=== PATIENT | male | born 1990 | race Two or more races ===

== ENCOUNTER 2024-11-19 03:25 | Emergency (ER) | payer MEDICAID, SELFPAY ==
--- NOTE | ~2024-11-19 | CT_ITS ---
CLINICAL HISTORY: right facial swelling? parotitis, soft tissue absc CT soft tissue neck with contrast Comparison: None Findings: The visualized intracranial contents are unremarkable. No prevertebral fluid. Epiglottis is within normal limits. Pharyngeal mucosal space and parapharyngeal fat are normal. There are mildly enlarged bilateral cervical chain lymph nodes likely reactive. There is a circumscribed low-attenuation structure superficial to the right parotid gland measuring 2.1 x 1.2 x 2.8 cm. The salivary glands are otherwise unremarkable. Thyroid gland is unremarkable. Visualized lung apices are clear. No acute fractures. There is chronic sinusitis. IMPRESSION: There is a circumscribed low-attenuation structure superficial to the right parotid gland measuring 2.1 x 1.2 x 2.8 cm. favor abscess or necrotic lymph node. Consider correlating with ultrasound. Mild reactive cervical chain adenopathy bilaterally. This document has been electronically signed by: Mateo Emmanuel MD on 11/19/2024 09:51:53
[2024-11-19 03:29] VITALS: BP 138/95; PULSE 100; RESP 18; TEMP 36.9; O2SAT 95; BMI 32.1
--- OUTSIDE RECORDS SUMMARY | 2024-11-19 06:36 | XMS_ITS | Clinical Summary ---
Author Organization [facility] Address [address] [place] [address] Care Team Providers Care Bouffant Curtain Machine Tender Name Role Phone Sonia Barajas PA-C Primary Care Provider [phone] Source Comments PLEASE NOTE, if this patient is a minor, it may be UNLAWFUL to discuss sensitive information that is contained in these records (such as FAMILY PLANNING, MENTAL HEALTH or SUBSTANCE ABUSE) with the minor patient's parent or other person without the patient's specific authorization.[facility] Allergies No known active allergies Medications ARIPiprazole (ABILIFY) 15 mg tablet TAKE 1 TABLET BY MOUTH EVERY DAY IN THE MORNING 2 Active zolpidem (AMBIEN) 10 mg tablet TAKE 1 TABLET BY MOUTH EVERY DAY AT BEDTIME NEEDED 2 Active famotidine (PEPCID) 20 mg tabletIndications: Dyspepsia Take 1 Tablet by mouth 2 (two) times daily as needed for heartburn 30 Tablet 3 2 Active simvastatin (ZOCOR) 10 mg tabletIndications: Hyperlipidemia, unspecified hyperlipidemia type Take 1 Tablet by mouth nightly at bedtime 90 Tablet 2 Active hydrocortisone 1 % creamIndications:R ruthie Apply topically 2 (two) times daily 30 g 1 2 Active meloxicam (MOBIC) 7.5 mg tabletIndications: Right elbow pain,Left foot pain Take 1 Tablet by mouth once daily 30 Tablet 1 3 Active cyclobenzaprine (FLEXERIL) 10 mg tabletIndications: Right elbow pain,Left foot pain Take 1 Tablet by mouth 3 (three) times daily as needed for muscle spasms 45 Tablet 3 Active Active Problems Problem Noted Date Diagnosed Date Substance abuse ([facility]) 06/04/2021 Depression 06/04/2021 Current every day smoker 06/04/2021 Family History Medical History Relation Name Comments No Known Problems Daughter DVT Father Relation Name Status Comments Daughter Alive Father Alive Mother Alive Social History Tobacco Use Types Packs/Day Years Used Date Smoking Tobacco: Some Days Cigarettes Smokeless Tobacco: Former Tobacco Cessation:Counseling Given: Yes Comments:About 10 a day - quit 1 week ago Alcohol Use Standard Drinks/Week Comments Yes 0 (1 standard drink = 0.6 oz pur e alcohol) occ Social Connections Answer Date Recorded Connectedness 0 07/20/2024 Financial Resource Strain Answer Date R ecorded Financial Resource Strain 0 2020 Stress Answer Date Recorded Stress 0 06/03/2021 Physical Activity Answer Date Recorded Physical Activity 0 06/03/2021 Food Insecurity Answer Date Recorded Food 0 07/13/2024 Transportation Needs Answer Date Record ed Transportation 0 06/03/2021 Housing Stability Answer Date Recorded Housing 0 06/03/2021 Safety and Environment Answer Date Baltazar rded Safety 0 06/03/2021 Utilities Answer Date Recorded Utilities 0 06/03/2021 Employment Answer Date Recorded Stress 0 07/20/2024 Sex and Gender Information Value Date Recorded Sex Assigned at Male 06/04/2021 10:05 AM PDT Legal Sex Male 9:46 AM PDT Gender Identity Male 06/04/2021 10:05 AM PDT Sexual Orientation Straight 06/04/2021 10 :05 AM PDT Last Filed Vital Signs Vital Sign Reading Time Taken Comments Blood Pressure 118/80 07/27/2023 10:56 AM EDT Pulse 88 07/27/2023 10:56 AM EDT Temperature 36.7 ??C (98.1 ??F) 07/27/2023 10:56 AM E DT Respiratory Rate 20 07/27/2023 10:56 AM EDT Oxygen Saturation 98% 03/31/2023 3:20 PM EDT Inhaled Oxygen Concentration - - Weight 102.5 kg (226 lb) 07/27/2023 10:56 AM EDT Height 188 cm (6' 2 ) 07/27/2023 10:56 AM EDT Body Mass Index 29.02 07/27/2023 10:56 AM EDT Plan of Treatment Health Maintenance Due Date Last Done Comments Imm-DTaP/Tdap/Td (1 - Tdap) 2008 Imm-Hepatitis B (1 of 3 - 19 + 3-dose series) 2008 Imm-Pneumococcal (1 of 2 - PCV) 2008 Annual Preventive Care Visit 08/04/2023 08/04/2022, 06/03/2021 Depression Monitoring 10/27/2023 07/27/2023 , 08/04/2022, 06/03/2021 Tobacco Cessation Counseling (#1) 07/26/2024 021 Alcohol and Drug Screen 10/18/2024 07/27/20 23, 03/31/2023, 08/04/2022, Additional history exists Diabetes Screening 11/22/2024 11/22/2023, 0 11/22/2023, 12/05/2021, Additional history exists Lipid Screening 11/22/2024 11/22/2023, 12/05/2021 Hypertension Screening (#1) 07/26/2026 HIV Screening Completed 12/05/2021 Hepatitis C Screening Completed 11/22/2023, 022 [id number] Discontinued Imm-Influenza Discontinued Procedures Procedure Name Priority Date/Time Associated Diagnosis Comments ACUTE HEPATITIS PANEL W/RFLX Routine 11/22/2023 2:32 PM EST Erectile dysfunction, unspecified erectile dysfunction type COMPREHENSIVE METABOLIC PANEL Routine 11/22/2023 2:32 PM EST Hyperlipidemia, unspecified hyperlipidemia type LIPIDS W RFLX TO DIRECT LDL Routine 11/22/2023 2:32 PM EST Erectile dysfunction, unspecified erectile dysfunction type Hyperlipidemia, unspecified hyperlipidemia type HIV 1/2 AG & AB W/RFLX (4TH GEN) Routine 12/05/2021 10:05 AM EST Encounter for general adult medical examination w/o abnormal findings from Last 3 Months or Most Recently Relevant to Health Maintenance Results * ACUTE HEPATITIS PANEL W/RFLX (11/22/2023 2:32 PM EST) HEPATITIS B SURFACE ANTIGEN NON-REACT ANTHONY NON-REACT ANTHONY [facility] [facility] COMMENT [employer] [facility] HEPATITIS B CORE IGM ANTIBODY NON-REACT ANTHONY NON-REACT ANTHONY [employer] [facility] COMMENT [employer] [facility] HEPATITIS C ANTIBODY NON-REACT ANTHONY NON-REACT ANTHONY [employer] [facility] Comment: HCV antibody was non-reactive. There is no laboratory evidence of HCV infection. In most cases, no further action is required. However, if recent HCV exposure is suspected, a test for HCV RNA (test code 56002) is suggested. For additional information please refer to http://Skipola.[employer]/faq/TPG17k7 (This link is being provided for informational/ educational purposes only.) HEPATITIS A IGM ANTIBODY NON-REACT ANTHONY NON-REACT ANTHONY [employer] [facility] COMMENT [employer] [facility] Blood Blood / Unknown 11/22/2023 2 :32 PM EST 11/22/2023 2:33 PM EST Narrative [employer] [facility] - 11/29/2023 1:18 PM EST For additional information, please refer to http://Skipola.[employer]/faq/AAJ535 (This link is being provided for informational/ educational purposes only.) For additional information, please refer to http://Skipola.[employer]/faq/BRE592 (This link is being provided for informational/ educational purposes only.) For additional information, please refer to http://[employer]/faq/IFW678 (This link is being provided for informational/ educational purposes only.) us Sonia Barajas PA-C LAB - BLOOD DRAW Final Resul t [facility] [facility] [employer] [address] [address], [employer] [address] [address] * (ABNORMAL) LIPIDS W RFLX TO DIRECT LDL (11/22/2023 2:32 PM EST) CHOLESTEROL, TOTAL 194 <200 mg/dL [facility] HDL CHOLESTEROL 56 > OR = 40 mg/dL [facility] TRIGLYCERIDES 127 <150 mg/dL [employer] [facility] LDL-CHOLESTEROL 114(H) 99 mg/dL (calc) [employer] Comment: Reference range: <100 Desirable range <100 mg/dL for primary prevention; ?? <70 mg/dL for patients with CHD or diabetic patients with > or = 2 CHD risk factors. LDL-C is now calculated using the Halley calculation, which is a validated novel method providing better accuracy than the Friedewald equation in the estimation of LDL-C. Luis Carlos NG et al. ROSA ELENA. 2013;310(19): 3965-6824 (http://education.Foodzai/faq/RUX119) CHOL/HDLC RATIO 3.5 <5.0 (calc) [employer] NON-HDL CHOLESTEROL 138(H) <130 mg/dL (calc) [employer] Comment: For patients with diabetes plus 1 major ASCVD risk factor, treating to a non-HDL-C goal of <100 mg/dL (LDL-C of <70 mg/dL) is considered a therapeutic option. Blood Blood / Unknown 11/22/2023 2 :32 PM EST 11/22/2023 2:33 PM EST us Sonia Barajas PA-C LAB - BLOOD DRAW Final Resul t [employer] [address] [place] [id number], [employer] [address] [place] [phone] * (ABNORMAL) COMPREHENSIVE METABOLIC PANEL (11/22/2023 2:32 PM EST) GLUCOSE 103(H) 65 - 99 mg/dL [employer] Comment: ?Fasting reference interval For someone without known diabetes, a glucose value between 100 and 125 mg/dL is consistent with prediabetes and should be confirmed with a follow-up test. UREA NITROGEN (BUN) 18 7 - 25 mg/dL [employer] CREATININE (blood) 0.92 0.60 - 1.26 mg/dL [employer] EGFR 112 > OR = 60 mL/min/1. 73m2 [employer] BUN/CREATININE RATIO SEE NOTE: [employer] Comment: ?? Not Reported: BUN and Creatinine are within ?? reference range. ? SODIUM 138 135 - 146 mmol/L [employer] [facility] POTASSIUM 4.8 3.5 - 5.3 mmol/L [employer] CHLORIDE 105 98 - 110 mmol/L [employer] [facility] CARBON DIOXIDE 27 20 - 32 mmol/L [employer] [facility] [facility] CALCIUM 9.2 8.6 - 10.3 mg/dL [employer] PROTEIN, TOTAL 6.6 6.1 - 8.1 g/dL [employer] [facility] ALBUMIN 4.4 3.6 - 5.1 g/dL [employer] [facility] GLOBULIN 2.2 1.9 - 3.7 g/dL (calc) [employer] [facility] [employer] ALBUMIN/GLOBULI N RATIO 2.0 1.0 - 2.5 (calc) [employer] BILIRUBIN, TOTAL 0.6 0.2 - 1.2 mg/dL [employer] [facility] ALKALINE PHOSPHATASE 98 36 - 130 U/L [employer] [facility] AST 13 10 - 40 U/L [employer] [facility] ALT 11 9 - 46 U/L [employer] [facility] Blood Blood / Unknown 11/22/2023 2 :32 PM EST 11/22/2023 2:33 PM EST us Sonia Barajas PA-C LAB - BLOOD DRAW Edited Resu lt - Final [employer] [address] [address], [employer] [address] [phone] * HIV 1/2 AG & AB W/RFLX (4TH GEN) (12/05/2021 10:05 AM EST) HIV AG/AB, 4TH GEN NON-REAC TIVE NON-REAC TIVE [employer] [facility] Comment: HIV-1 antigen and HIV-1/HIV-2 antibodies were not detected. There is no laboratory evidence of HIV infection. PLEASE NOTE: This information has been disclosed to you from records whose confidentiality may be protected by state law. ??If your state requires such protection, then the state law prohibits you from making any further disclosure of the information without the specific written consent of the person to whom it pertains, or as otherwise permitted by law. A general authorization for the release of medical or other information is NOT sufficient for this purpose. ?? For additional information please refer to http://education.GridCure.8bit/faq/QZJ363 (This link is being provided for informational/ educational purposes only.) The performance of this assay has not been clinically validated in patients less than 2 years old. Blood Blood / Unknown 12/05/2021 1 0:05 AM EST 12/05/2021 10:07 AM EST Narrative [facility] - 12/06/2021 2:15 AM EST FASTING:NO Marlon Barr PA-C LAB - BLOOD DRAW Final Result [facility] [id number] [facility] [address] [address], [employer] [facility] [address] [address] from Last 3 Months or Most Recently Relevant to Health Maintenance [place] [employer] [address] [employer] Care Teams Bouffant Curtain Machine Tender Relationship Specialty Start Date End Date Sonia Barajas PA-C [address] [place] [address] PCP - General Internal Medicine 08/02/23
--- OUTSIDE RECORDS SUMMARY | 2024-11-19 06:36 | XMS_ITS | Encounter Summary ---
Author Organization [employer] [facility] Address [address] [place] [address] Care Team Providers Care Wilton Weaver Name Role Phone Unavailable Primary Care Provider Unavailabl e Encounter Details Date Type Department Care Team (Latest Contact Info) Description 11/13/2024 Travel Social History Tobacco Use Types Packs/Day Years Used Date Smoking Tobacco: Never Assessed Sex and Gender Information Value Date Recorded Sex Assigned at Male 11/13/2024 1:35 PM EST Legal Sex Male 1:30 PM EST Gender Identity Male 11/13/2024 1:35 PM EST Sexual Orientation Straight 11/13/2024 1: 35 PM EST documented as of this encounter Plan of Treatment Not on file documented as of this encounter Visit Diagnoses Not on filedocumented in this encounter
--- OUTSIDE RECORDS SUMMARY | 2024-11-19 06:36 | XMS_ITS | Clinical Summary ---
Author Organization [employer] Address [address] [place] [address] [address] [place] [address] Care Team Providers Care Tractor Operator Laser Leveling Name Role Phone Unavailable Primary Care Provider Unavailabl e Allergies No known active allergies Medications doxycycline (Vibramycin) 100 MG capsuleIndicati ons:Facial cellulitis Take 1 capsule (100 mg) by mouth 2 times daily for 7 days. Take with at least 8 ounces (large glass) of water, do not lie down for 30 minutes after 14 capsule 11/13/2024 Active Encounters Date Type Department Care Team Description 11/13/2024 5:00 PM EST Office Visit [facility] [address] [place] [phone] Ed Colbert MD Facial cellulitis (Primary Dx) 11/13/2024 Telephone [facility] [address] [place] [phone] Ed Colbert MD 11/13/2024 Travel 11/13/2024 Telephone [facility] [address] [place] [phone] Arnulfo Segura MD insurance from Last 3 Months Social History Tobacco Use Types Packs/Day Years Used Date Smoking Tobacco: Never Assessed Sex and Gender Information Value Date Recorded Sex Assigned at Male 11/13/2024 1:35 PM EST Legal Sex Male 1:30 PM EST Gender Identity Male 11/13/2024 1:35 PM EST Sexual Orientation Straight 11/13/2024 1: 35 PM EST Last Filed Vital Signs Vital Sign Reading Time Taken Comments Blood Pressure 132/87 11/13/2024 4:47 PM EST Pulse 99 11/13/2024 4:47 PM EST Temperature 36.7 ??C (98.1 ??F) 11/13/2024 4:47 PM ES T Respiratory Rate 18 11/13/2024 4:47 PM EST Oxygen Saturation 97% 11/13/2024 4:47 PM EST Inhaled Oxygen Concentration - - Weight 113 kg (250 lb) 11/13/2024 4:47 PM EST Height - - Body Mass Index - - Plan of Treatment Health Maintenance Due Date Last Done Comments Depression Screening 1989 Lipid Panel 1989 SDOH Screening 1989 Alcohol/Substance Use Screening 2001 Tobacco Screening 2001 Family Planning (PISQ) 2004 Hepatitis C Screening 2007 Hepatitis B Vaccines (1 of 3 - 19+ 3-dose series) 2008 COVID-19 Vaccine (2023-2 5 season) 2024 Influenza Vaccine (#1) 2024 DTaP/Tdap/Td Vaccines (2 - T d or Tdap) 10/04/2025 10/04/2015 Zoster Vaccines (1 of 2) 2039 RSV Patients and Pa tients Aged 60 years or older (1 - 1-dose 75+ series) 2064 Pneumococcal Vaccine: Pediat rics (0 to 5 Years) and At-Risk Patients (6 to 49) Years) Aged Out 06/11/2009 No longer elig ible based on patient's age to complete this topic HIV Screening Completed 12/05/2021 HIB Vaccines Aged Out No longer eligi ble based on patient's age to complete this topic HPV Vaccines Aged Out No longer eligi ble based on patient's age to complete this topic Hepatitis A Vaccines Aged Out No long er eligible based on patient's age to complete this topic IPV Vaccines Aged Out No longer eligi ble based on patient's age to complete this topic Meningococcal Vaccine Aged Out No harlan dorys eligible based on patient's age to complete this topic RSV under 20 months Aged Out No longe r eligible based on patient's age to complete this topic Rotavirus Vaccines Aged Out No longer eligible based on patient's age to complete this topic Insurance [employer]
--- OUTSIDE RECORDS SUMMARY | 2024-11-19 06:36 | XMS_ITS | Encounter Summary ---
Author Organization [employer] Address [address] [place] [address] Care Team Providers Care Poultry Service Technician Name Role Phone Unavailable Primary Care Provider Unavailabl e Encounter Details Date Type Department Care Team (Late st Contact Info) Description 11/13/2024 Telephone [facility] [address] [place], [place] [phone] Ed Colbert MD [address] [place], [place] [phone] Social History Tobacco Use Types Packs/Day Years Used Date Smoking Tobacco: Never Assessed Sex and Gender Information Value Date Recorded Sex Assigned at Male 11/13/2024 1:35 PM EST Legal Sex Male 1:30 PM EST Gender Identity Male 11/13/2024 1:35 PM EST Sexual Orientation Straight 11/13/2024 1: 35 PM EST documented as of this encounter Miscellaneous Notes * Telephone Encounter - Alexa Lawson - 11/14/2024 8:39 AM EST Patient added to [facility] New Patient wait list as 11-14-2024 * Telephone Encounter - Ed Colbert MD - 11/13/2024 8:09 PM EST New PCP appointment request. documented in this encounter Plan of Treatment Not on file documented as of this encounter Visit Diagnoses Not on filedocumented in this encounter
--- OUTSIDE RECORDS SUMMARY | 2024-11-19 06:36 | XMS_ITS | Clinical Summary ---
Author Organization [facility] Address [address] [place] [address] Care Team Providers Care Showplace Manager Name Role Phone Unavailable Primary Care Provider Unavailabl e Social History Tobacco Use Types Packs/Day Years Used Date Smoking Tobacco: Never Assessed Sex and Gender Information Value Date Recorded Sex Assigned at Not on file Gender Identity Not on file Sexual Orientation Not on file Plan of Treatment Health Maintenance Due Date Last Done Comments DTaP,Tdap,and Td Vaccines (1 - Tdap) 2008 Hepatitis B Vaccines (1 of 3 - 19+ 3-dose series) 2008 COVID-19 Vaccine (2023-2 5 season) 2024 Influenza Vaccine (#1) 2024 HIB Vaccines Aged Out No longer eligi [...] on patient's age to complete this topic MMR Vaccines Aged Out No longer eligi ble based on patient's age to complete this topic Meningococcal ACWY Vaccine Aged Out N o longer eligible based on patient's age to complete this topic Pneumococcal Vaccine: Pediat rics (0 to 5 Years) and At-Risk Patients (6 to 64 Years) Aged Out No longer eligible b ased on patient's age to complete this topic RSV Immunization Patients Un fermin 20 months Aged Out No longer eligible b ased on patient's age to complete this topic Varicella Vaccines Aged Out No longer eligible based on patient's age to complete this topic
--- OUTSIDE RECORDS SUMMARY | 2024-11-19 06:36 | XMS_ITS | Encounter Summary ---
Author Organization [employer] Address [address] [place] [address] Care Team Providers Care Food Sales Clerk Name Role Phone Unavailable Primary Care Provider Unavailabl e Reason for Visit * Reason Onset Date Comments insurance 11/13/2024 Encounter Details Date Type Department Care Team (Late st Contact Info) Description 11/13/2024 Telephone [facility] [address] [place], [place] [phone] Arnulfo Segura MD [address] [place], [place] [phone] insurance Social History Tobacco Use Types Packs/Day Years Used Date Smoking Tobacco: Never Assessed Sex and Gender Information Value Date Recorded Sex Assigned at Male 11/13/2024 1:35 PM EST Legal Sex Male 1:30 PM EST Gender Identity Male 11/13/2024 1:35 PM EST Sexual Orientation Straight 11/13/2024 1: 35 PM EST documented as of this encounter Miscellaneous Notes * Telephone Encounter - Ingrid Molina - 11/13/2024 1:52 PM EST Pt has an active insurance but it's assigned to [facility]. Pt says he would like to receive care here at [facility] because he was never scheduled at the other office or received any care. I informed pt that he needs to go to insurance enrollment so they can help him change his insurance to this clinic. Pt verbalized understanding and said he will do this today. documented in this encounter Plan of Treatment Not on file documented as of this encounter Visit Diagnoses Not on filedocumented in this encounter
[2024-11-19 06:38] VITALS: BP 138/89; PULSE 74; RESP 16; TEMP 36.6; O2SAT 98
--- NOTE | 2024-11-19 08:12 | ED_ITS ---
HPI - General Adult General Chief complaint: Skin/Abscess/Foreign Body Stated complaint: right side jaw inflammation Time Seen by Provider: 11/19/24 08:01 Source: patient Mode of arrival: ambulatory Limitations: no limitations History of Present Illness ED Provider: DR. Hanks HPI narrative: 34-year-old male came in for evaluation of right side Gabriel swelling x2 weeks. Started in the left maxillary area, patient was started on doxycycline on 11/11 with improvement of the left maxillary swelling but now swelling is on the right mandible which is tender for the past few days, no drainage, no fever, no chills. Declined any IV drug abuse, only use snort cocaine occasionally, patient also drink alcohol occasionally. Related Data Previous Rx's ?Medication ?Instructions ?Recorded cephalexin 500 mg capsule 500 mg PO BID 7 days #14 caps 11/19/24 Allergies Allergy/AdvReac Type Severity Reaction Status Date / Time No Known Allergies Allergy Verified 11/19/24 03:31 Review of Systems 2 Review of Systems: all other systems are reviewed and are negative Constitutional: Reports as per HPI and Reports no additional constitutional complaints Eyes: Reports as per HPI and Reports no additional eye complaints Reports system reviewed and no additional complaints, except as documented Cardiovascular: Reports as per HPI and Reports no additional cardiovascular complaints Respiratory: Reports as per HPI and Reports no additional respiratory complaints Gastrointestinal: Reports as per HPI and Reports no additional gastrointestinal complaints Genitourinary: Reports no additional female genitourinary complaints Musculoskeletal: Reports no additional musculoskeletal complaints Skin/Breast: Reports system reviewed and no additional complaints, except as docu Psychiatric: Reports no additional psychiatric complaints Endocrine: Reports no additional endocrine complaints Hematologic/Lymphatic: Reports no additional hematologic/lymphatic complaints Allergic/Immunologic: Reports no additional allergic/immunologic complaints Reports system reviewed and no additional complaints, except as documented and Reports Abnormal speech present Physical Exam ED Vital Signs: Vital Signs - 24 hr 11/19/24 03:29 11/19/24 06:38 11/19/24 08:35 Temperature 98.4 F 98 F 97.8 F Pulse Rate 100 74 66 Respiratory Rate 18 16 16 Blood Pressure 138/95 H 138/89 113/78 Pulse Oximetry 95 98 98 Oxygen Delivery Method Room Air Room Air Room Air BMI result Body Mass Index 32.1 Vital signs have been reviewed and appear to be correct. Blood pressure elevated. Heart rate normal. Respiratory rate normal. Temperature normal. Oxygen saturation normal. Appearance: Alert. Oriented X3. No acute distress. Head: Normal external exam. Normocephalic. Atraumatic. No Oneal signs noted. No raccoon eyes noted Eyes: PERRLA. EOMI. Conjunctiva and sclera normal. Eyelids normal. ENT: TM's Normal. Pharynx normal. Uvula midline. Moist mucous membranes. No trismus noted. No drooling noted. No muffled voice noted. 3 x 4 cm area of swelling on the right mandible, slight tenderness, no fluctuation, no drainage. Neck: Normal inspection. Neck supple. FROM. No adenopathy. Thyroid Normal. No meningeal signs. No neck mass noted. CVS: Normal heart rate and rhythm. Heart sound normal. No murmurs noted. Pulses normal throughout. Respiratory: No respiratory distress. Painless inspiration. Breath sounds normal. No wheezes/rales/rhonchi noted. Chest nontender. No accessory muscle usage noted or decreased air movement noted. Abdomen: Soft and nontender. Bowel sounds normal in all 4 quadrants. No distention noted. No organomegaly noted. No visible injury noted. Back: No CVA tenderness. Full range of motion noted. Skin: Skin warm and dry. Normal skin color. Normal skin turgor. No rashes/lesions/lacerations noted. Extremities: No lower extremity edema. Extremities exhibit normal range of motion. Extremities nontender. Neuro: Oriented X 3. Cranial nerve exam: II-XII are grossly intact No motor deficit. No sensory deficit. Reflexes normal. Course Reevaluation(s) Reevaluation #1: facial CT reveals possible abscess over right parotid gland. patient s/p I and D will discharge home on Keflex. Time: 11:55 Medications Administered Discontinued Medications Generic Name Dose Route Start Last Admin Trade Name Freq PRN Reason Stop Dose Admin Iohexol 100 ml 11/19/24 09:25 11/19/24 09:26 Iohexol 350 Mg/Ml 100 Ml Infus..Btl IV 11/19/24 09:26 60 ml ONCE ONE Administration Lidocaine HCl 5 ml 11/19/24 11:26 11/19/24 11:52 Lidocaine Hcl 1 % Mpf 5 Ml Vial SUBCUT 11/19/24 11:27 5 ml ONCE ONE Administration Procedures Abscess I/D Site: face ( Right mandibular area.) Side (if applicable): right Local Anesthetic: lidocaine 1% Amount of anesthesia used (mL): 5 Technique: needle aspiration and incised with blade Amount of fluid expressed (mL): 3 Packing used?: none Medical Decision Making Differential Diagnosis Differential Diagnoses: The differential diagnosis associated with the presentation includes ( facial cellulitis, parotitis, lymphadenitis, electrolyte derangement, leukocytosis, severe anemia.) Admission/Observation Consideration of admission/observation: Escalation of care including admission/observation considered Lab Data MDM Lab Attestation statement: I reviewed the patient's lab results. 11/19/24 08:30 11/19/24 08:30 Labs: Lab Results 11/19/24 Range/Units 08:30 WBC 8.9 (4.8-10.8) X10*3/uL RBC 4.89 (4.60-5.80) X10*6/uL Hgb 14.1 (14.0-18.0) g/dl Hct 41.5 L (42.0-52.0) % MCV 84.9 (80.0-98.0) fL MCH 28.8 (27.0-33.0) pg MCHC 34.0 (31.0-36.0) g/dl RDW 12.7 (11.0-16.0) % Plt Count 233 (160-400) X10*3/uL MPV 9.6 (9.4-12.4) fL Immature Gran % (Auto) 0.2 (0.0-0.4) % Neut % (Auto) 44.8 L (45-73) % Lymph % (Auto) 36.0 (20-40) % [place] % (Auto) 11.0 (2-11) % Eos % (Auto) 7.2 H (0-4) % Baso % (Auto) 0.8 (0-2) % Lymph # (Auto) 3.2 (1.2-4.9) X10*3/uL [place] # (Auto) 1.0 (0.1-1.2) X10*3/uL Eos # (Auto) 0.6 H (0.0-0.4) X10*3/uL Baso # (Auto) 0.1 (0.0-0.2) X10*3/uL Abs Immat Gran (auto) 0.02 (0.00-0.03) X10*3/uL Absolute Neuts (auto) 4.0 (2.0-8.3) x10*3/uL Absolute Nucleated RBC 0.000 (0.0-0.012) X10*3/uL Nucleated RBC % (auto) 0.0 (0.0-0.2) /100WBC Sodium 138 (135-145) mmol/L Potassium 4.7 (3.3-5.1) mmol/L Chloride 105 (96-108) mmol/L Carbon Dioxide 22 (22-29) mmol/L Anion Gap 16 (12-20) BUN 16 (9-16) mg/dL Creatinine 0.86 (0.5-1.4) mg/dL Estim Creat Clear Calc 160.4 Estimated GFR > 60 Random Glucose 90 (60-115) mg/dL Calcium 9.0 (8.4-10.2) mg/dL Independent Interpretation I performed an independent interpretation of an: CT Scan ( Facial:There is a circumscribed low-attenuation structure superficial to the right parotid gland measuring 2.1 x 1.2 x 2.8 cm. favor abscess or necrotic lymph node. Consider correlating with ultrasound. Mild reactive cervical chain adenopathy bilaterally.) Radiology Impression Discussion of test interpretation with radiology: I have reviewed the radiologist's reading. Discharge Plan Discharge Clinical Impression: Abscess of skin or subcutaneous tissue Patient Disposition: Home, Self-Care Instructions: Abscess (ED) Prescriptions: New cephalexin 500 mg capsule 500 mg PO BID 7 Days Qty: 14 0RF Interventions: ED Discharge Assessment Last Done: 11/19/24 12:13 Discharge Date/Time: 11/19/24 12:14 Print Language: Danish
[2024-11-19 08:34] LABS: MANUAL DIFF FLAG NO
[2024-11-19 08:35] VITALS: BP 113/78; PULSE 66; RESP 16; TEMP 36.6; O2SAT 98
[2024-11-19 08:35] LABS: Basophils Absolute Auto 0.1 X10*3/uL (0.0-0.2); Basophils Percent Auto 0.8 % (0-2); Eosinophils Absolute Auto 0.6 X10*3/uL (0.0-0.4); Eosinophils Percent Auto 7.2 % (0-4); Hematocrit 41.5 % (42.0-52.0); Hemoglobin 14.1 g/dl (14.0-18.0); Imm Gran Abs Auto 0.02 X10*3/uL (0.00-0.03); Imm Gran Pct Auto 0.2 % (0.0-0.4); Lymphocytes Absolute Auto 3.2 X10*3/uL (1.2-4.9); Mean Corpuscular Hemoglobin 28.8 pg (27.0-33.0); Mean Corpuscular Volume 84.9 fL (80.0-98.0); Mean Platelet Volume 9.6 fL (9.4-12.4); Neutrophils Percent Auto 44.8 % (45-73); Platelet Count 233 X10*3/uL (160-400); Red Blood Count 4.89 X10*6/uL (4.60-5.80); Red Cell Distribution Width 12.7 % (11.0-16.0); White Blood Count 8.9 X10*3/uL (4.8-10.8)
[2024-11-19 08:54] LABS: Anion Gap 16 (12-20)
[2024-11-19 09:00] LABS: Blood Urea Nitrogen 16 mg/dL (9-16); Carbon Dioxide 22 mmol/L (22-29); Chloride 105 mmol/L (96-108); Creatinine Clr Calc Pharmacy 160.4; Estimated Glomerular Filt Rate > 60; Glucose Random 90 mg/dL (60-115); Potassium 4.7 mmol/L (3.3-5.1); Sodium 138 mmol/L (135-145)
[2024-11-19] MEDS: iohexoL 350 MG/ML 100 ML INFUS..BTL IV (09:26)
[2024-11-19] MEDS: Lidocaine HCl 1 % MPF 5 ML VIAL SUBCUT (11:52)
[2024-11-19 12:13] VITALS: BP 113/78; PULSE 66; RESP 16; TEMP 36.6; O2SAT 98
== END 2024-11-19 12:14 | disposition home or self-care (01) ==
PROVIDERS: Emergency Provider Emergency Medicine
DX: M27.2 Inflammatory conditions of jaws (principal); M54.2 Cervicalgia; R22.0 Localized swelling, mass and lump, head; F14.90 Cocaine use, unspecified, uncomplicated
CPT/HCPCS: 10060; 36415; 70491; 80048; 85025; 99284; J2003; Q9967

== ENCOUNTER → 2024-11-19 08:08 | Outpatient (BNV) | payer MEDICAID, SELFPAY | PROVIDERS: Emergency Provider Emergency Medicine; Visit Provider Radiology Diagnostic Radiology | DX: R22.0 Localized swelling, mass and lump, head (principal) | CPT/HCPCS: 70491 ==

== ENCOUNTER 2025-06-02 09:42 | Emergency (ER) | payer MEDICAID, SELFPAY ==
--- NOTE | ~2025-06-02 | CT_ITS ---
CLINICAL HISTORY: pain CT orbits and maxillofacial bones without contrast Comparison: None Findings: The globes are intact. No retrobulbar hematoma or post septal swelling is seen. No orbital fractures are present. No fractures of the frontal calvarium, julia meghan or cribriform plate. No facial fractures are identified. The zygomatic arches, pterygoid plates and hard palate are intact. The nasal bones and bridge are intact. The nasal septum is deviated to the right maxillary spine intact. Both temporomandibular joints are congruent. The mandible are intact. Mild cardenas sinusitis obstructive type. No air-fluid levels. Shotty cervical lymph nodes. Impression: 1. No intraorbital injury or orbital fractures. 2. No fractures of the facial bones identified. 3. Shotty cervical lymph nodes probably reactive. This document has been electronically signed by: Axel Roberson MD on 06/02/2025 12:10:43
--- NOTE | ~2025-06-02 | CT_ITS ---
CLINICAL HISTORY: head injury CT head without IV contrast Comparison: None Findings: The ventricles are normal in configuration. Basilar cisterns intact. No intracranial hemorrhage, mass-effect or midline shift. No extra-axial fluid collections. The parenchyma is unremarkable in attenuation. Lynch-white matter junction preserved. No evidence of acute large vessel or territorial ischemia. Brainstem and cerebellum unremarkable. The calvarium is intact. The imaged portion of the paranasal sinuses demonstrated bilateral ethmoid and maxillary sinusitis. No mastoid effusions. The orbital contents are unremarkable. Impression: 1. No CT evidence of acute intracranial pathology. This document has been electronically signed by: Axel Roberson MD on 06/02/2025 11:59:21
--- NOTE | ~2025-06-02 | CT_ITS ---
CLINICAL HISTORY: pain CT cervical spine without intravenous contrast Comparison: CT/SR - CT SOFT TISSUE NECK W IV CON - 11/19/24 09:06 EST Findings: Craniocervical junction: No occipital condylar fractures. No evidence of atlantooccipital dissociation. The anterior and posterior arch and lateral masses of C1 are intact. Odontoid and atlanto-dental interval intact. The pars interarticularis of C2 is intact. There is normal vertebral body heights with no evidence of compression fracture. There is normal cervical alignment. No locked or perched facets. No spinous process fractures. Lordotic curvature is preserved. The retropharyngeal soft tissues are not widened. Segmental analysis as below (MR is more accurate in the evaluation of disc herniation and central canal pathology): C2-C3: No herniation or stenosis. C3-C4: No herniation or stenosis. C4-C5: No herniation or stenosis. C5-C6: Uncovertebral body spurs C6-C7: Uncovertebral body spurs C7-T1: No herniation or stenosis. The bones are without evidence of lytic or blastic lesion. Lung apices are unremarkable. Impression: 1. Negative CT cervical spine for acute process. This document has been electronically signed by: Axel Roberson MD on 06/02/2025 12:03:26
--- NOTE | ~2025-06-02 | CT_ITS ---
CLINICAL HISTORY: left sided abd pain, JEM CT abdomen and pelvis with IV contrast Comparison: None Findings: Lung bases show no active disease. No dependent layering pleural effusions. The heart is not enlarged. Coronary artery calcifications: None. Mild hepatomegaly with hepatic steatosis. No focal hepatic lesions. Patent hepatic and portal veins. Physiologic distention of the gallbladder with no radiopaque gallstones. Homogeneous enhancement of the pancreas. No splenomegaly. Normal adrenal glands. Symmetrical renal excretion with no segmental or diffuse renal parenchymal disease or evidence of obstructive uropathy/hydroureteronephrosis. Normal caliber abdominal aorta. Bowel demonstrates a nonobstructive pattern. No free air. Normal appendix and terminal ileum. No significant diverticular disease. No intraperitoneal, retroperitoneal, pelvic or inguinal masses lymphadenopathy or abnormal fluid collections. Normal distention of the urinary bladder. No prostatomegaly. No vertebral body compression fractures or spondylolisthesis. No bony destructive lesions. Impression: 1. Mild hepatomegaly with hepatic steatosis. 2. No significant diverticular disease. Nonspecific fluid-filled loops of proximal small bowel without obstruction possible small-bowel enteritis. 3. No renal parenchymal disease or evidence of obstructive uropathy. This document has been electronically signed by: Axel Roberson MD on 06/02/2025 16:57:35
--- NOTE | ~2025-06-02 | CT_ITS ---
CLINICAL HISTORY: Left sided facial weakness, double vision L eye, --- Additional Notes or Special Instructions: VAL[place]INEE CARLY weakness CT angiography head with IV contrast. 3-D postprocessing Comparison: CT/SR - CT HEAD/BRAIN WO IV CON - 06/02/25 10:[address]/SR - CT FACIAL BONES WO IV [facility] - 06/02/25 10:[address]/SR - CT CERVICAL SPINE WO IV [facility] - 06/02/25 10:32 EDT Findings: Angiographic images of the head: The terminal portion of both internal carotid arteries are patent. The anterior and middle cerebral arteries are patent along their proximal aspects. Posteriorly within the head, the intradural vertebral arteries, basilar artery and insulation cutter are patent. No aneurysm or arteriovenous shunting lesion is appreciated. Impression: 1. Wide patency of the intracranial arterial circulation. 2. No intracranial aneurysm or AVM. 3. MRI of the brain is recommended in light of patient's history. The posterior fossa was subject to beam hardening artifact and limited in its evaluation. CT angiography neck with contrast. 3-D postprocessing Comparison: CT/SR - CT HEAD/BRAIN WO IV CON - 06/02/25 10:[address]/SR - CT FACIAL BONES [facility] - 06/02/25 10:[address]/SR - CT CERVICAL SPINE [facility] - 06/02/25 10:32 EDT Findings: Angiographic images of the neck: The bilateral common carotid arteries are patent. Both carotid bulbs are widely patent. Both ICAs follow normal course and caliber through their distal cervical segments. Posteriorly within the neck, the vertebral arteries are codominant with patent origins. Both vessels follow normal course and caliber through their suboccipital segments. Maxillary ethmoid and frontal sinusitis. No mastoid effusions. Adenoids are not enlarged. Normal Fossa of Rosenmuller. Epiglottis and palatine tonsils are not enlarged. Mild cervical lymphadenopathy follow-up until resolution. Normal thyroid gland. Osseous structures intact. Lung apices unremarkable. Impression: 1. There is no stenosis of the right common carotid artery bifurcation and proximal right internal carotid artery based on NASCET criteria. 2. There is no stenosis of the left common carotid artey bifurcation and proximal left internal carotid artery based on NASCET criteria. 3. Wide patency of the cervical vertebral arteries. 4. Cervical lymphadenopathy requires follow-up until resolution This document has been electronically signed by: Axel Roberson MD on 06/02/2025 16:42:11
--- NOTE | ~2025-06-02 | XR_ITS ---
CLINICAL HISTORY: assess mediastinum 1 view chest x-ray. Comparison: None Findings: Normal lung volumes. Lungs are clear. No pneumothorax or pleural effusion. Heart size normal. No passive venous congestion. No midline shift or tracheal deviation. No acute fracture. Impression: 1. No acute cardiopulmonary disease. Normal cardiac/mediastinal silhouette This document has been electronically signed by: Axel Roberson MD on 06/02/2025 12:46:03
[2025-06-02 09:48] VITALS: BP 123/76; PULSE 116; RESP 16; TEMP 36.4; O2SAT 99; BMI 32.1
--- OUTSIDE RECORDS SUMMARY | 2025-06-02 10:03 | XMS_ITS | Clinical Summary ---
Author Organization [facility] ity Address [address] [place] [address] Care Team Providers Care Anesthesia Attending Name Role Phone Unavailable Primary Care Provider Unavailabl e Social History Tobacco Use Types Packs/Day Years Used Date Smoking Tobacco: Never Assessed Sex and Gender Information Value Date Recorded Sex Assigned at Not on file Legal Sex Male 4:36 AM EST Gender Identity Not on file Sexual Orientation Not on file Plan of Treatment Health Maintenance Due Date Last Done Comments DTaP,Tdap,and Td Vaccines (1 - Tdap) 2008 Hepatitis B Vaccines (1 of 3 - 19+ 3-dose series) 2008 COVID-19 Vaccine (2023-2 5 season) 2024 Depression Screening 10/18/2024 Influenza Vaccine (#1) 2025 HIB Vaccines Aged Out No longer eligi [...] patient's age to complete this topic Meningococcal B Vaccine Aged Out No l onger eligible based on patient's age to complete this topic Pneumococcal Vaccine: Pediat rics (0 to 5 Years) and At-Risk Patients (6 to 49 Years) Aged Out No longer eligible b ased on patient's age to complete this topic RSV Immunization Patients Un fermin 20 months Aged Out No longer eligible b ased on patient's age to complete this topic Varicella Vaccines Aged Out No longer eligible based on patient's age to complete this topic
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
[2025-06-02 10:16] VITALS: BP 122/90; PULSE 106; RESP 16; TEMP 36.8; O2SAT 97
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
--- NOTE | 2025-06-02 11:09 | ECG_ITS ---
Test Reason : ABD PAIN Blood Pressure : */* mmHG Vent. Rate : 86 BPM Atrial Rate : 86 BPM P-R Int : 134 ms QRS Dur : 110 ms QT Int : 352 ms P-R-T Axes : 68 62 56 degrees QTcB Int : 421 ms Normal sinus rhythm Normal ECG No previous ECGs available Referred By: Altagracia Linares Electronically Signed By: Douglas Villegas
[2025-06-02 11:41] LABS: MANUAL DIFF FLAG NO
[2025-06-02 11:45] LABS: Hematocrit 45.9 % (42.0-52.0); Hemoglobin 16.0 g/dl (14.0-18.0); Imm Gran Abs Auto 0.01 X10*3/uL (0.00-0.03); Imm Gran Pct Auto 0.1 % (0.0-0.4); Lymphocytes Absolute Auto 2.9 X10*3/uL (1.2-4.9); Mean Corpuscular HGB Conc 34.9 g/dl (31.0-36.0); Mean Corpuscular Hemoglobin 29.5 pg (27.0-33.0); Mean Corpuscular Volume 84.7 fL (80.0-98.0); NRBC Abs Auto 0.000 X10*3/uL (0.0-0.012); NRBC Pct Auto 0.0 /100WBC (0.0-0.2); Platelet Count 266 X10*3/uL (160-400); Red Blood Count 5.42 X10*6/uL (4.60-5.80); White Blood Count 9.4 X10*3/uL (4.8-10.8)
[2025-06-02 12:00] LABS: INTERNATIONAL NORM RATIO 1.0 (0.9-1.1); Prothrombin Time 11.4 SEC (10.9-12.4)
[2025-06-02 12:07] LABS: Alanine Aminotransferase 24 U/L (0-40); Albumin Level 5.4 g/dL (3.5-5.0); Alkaline Phosphatase 114 U/L (39-117); Anion Gap 20 (12-20); Aspartate Amino Transferase 28 U/L (5-37); Blood Urea Nitrogen 25 mg/dL (9-16); Calcium 10.0 mg/dL (8.4-10.2); Carbon Dioxide 24 mmol/L (22-29); Chloride 98 mmol/L (96-108); Creatinine Clr Calc Pharmacy 76.4; Estimated Glomerular Filt Rate 43; Potassium 4.3 mmol/L (3.3-5.1); Sodium 138 mmol/L (135-145); Total Protein 8.6 g/dL (6.5-8.0); Troponin-I High Sensitivity < 2.7 ng/L (<3.5-35.0)
[2025-06-02 12:09] LABS: Partial Thromboplastin Time 23.9 SEC (26.7-34.1)
[2025-06-02 12:20] LABS: Syphilis Screen Nonreactive (Nonreactive)
[2025-06-02 14:01] VITALS: BP 100/73; PULSE 75; RESP 14; TEMP 36.4; O2SAT 98
--- NOTE | 2025-06-02 14:03 | PC.NURSE ---
Patient reports no pain at this time Inserted IV 20G RAC currently infusing 2L NS
[2025-06-02] MEDS: iohexoL 350 MG/ML 100 ML INFUS..BTL IV (15:19)
[2025-06-02 17:58] VITALS: BP 116/70; PULSE 67; RESP 16; O2SAT 97
[2025-06-02 19:06] VITALS: BP 124/78; PULSE 80; RESP 16; TEMP 37; O2SAT 100
[2025-06-02 20:18] VITALS: BP 126/80; PULSE 80; RESP 16; TEMP 37; O2SAT 98
[2025-06-05 02:58] LABS: Lyme Abs Screen <0.90 index
[2025-06-20 07:33] LABS: A. Phagocytophilum Ab IgG <1:64 (<1:64); A. Phagocytophilum Ab IgM <1:20 (<1:20)
== END 2025-06-02 20:21 | disposition short-term general hospital (02) ==
PROVIDERS: Physician Assistant Medical; Emergency Provider Emergency Medicine
DX: N17.9 Acute kidney failure, unspecified (principal); S09.90XA Unspecified injury of head, initial encounter; Y00.XXXA Assault by blunt object, initial encounter; Y93.9 Activity, unspecified; Y92.9 Unspecified place or not applicable; Y99.9 Unspecified external cause status; R51.9 Headache, unspecified; R42 Dizziness and giddiness; H53.2 Diplopia; R53.1 Weakness; R20.2 Paresthesia of skin; R20.0 Anesthesia of skin; F12.90 Cannabis use, unspecified, uncomplicated; F14.90 Cocaine use, unspecified, uncomplicated
CPT/HCPCS: 36415; 70450; 70486; 70496; 70498; 71045; 72125; 74177; 80048; 80076; 82550; 84443; 84484; 85025; 85610; 85652; 85730; 86140; 86617; 86618; 86666; 86753; 86780; 93005; 96360; 96361; 99285; Q9967

== ENCOUNTER → 2025-06-02 10:16 | Outpatient (BNV) | payer MEDICAID, SELFPAY | PROVIDERS: Emergency Provider Emergency Medicine; Visit Provider Radiology Diagnostic Radiology | DX: K76.0 Fatty (change of) liver, not elsewhere classified (principal); S09.90XA Unspecified injury of head, initial encounter; M54.2 Cervicalgia; R59.0 Localized enlarged lymph nodes; R11.0 Nausea | CPT/HCPCS: 70450; 70486; 70496; 70498; 71045; 72125; 74177 ==

== ENCOUNTER → 2025-06-02 11:09 | Outpatient (BNV) | payer MEDICAID, SELFPAY | PROVIDERS: Emergency Provider Emergency Medicine; Visit Provider Internal Medicine Cardiovascular Disease | DX: R10.9 Unspecified abdominal pain (principal) | CPT/HCPCS: 93010 ==

== ENCOUNTER 2025-06-11 14:23 | Outpatient (REF) | payer MEDICAID, SELFPAY ==
--- NOTE | ~2025-06-11 | XR_ITS ---
EXAMINATION: XR ELBOW, RIGHT CLINICAL INFORMATION: right anterior elbow pain for the past 2 weeeks COMPARISON: None available. TECHNIQUE: AP, lateral, and oblique views of the right elbow. FINDINGS: No fracture, dislocation, or suspicious bone lesion. There is normal alignment. There are mild degenerative changes in the ulnar trochlear joint and radiocapitellar joint with subtle marginal spurs. The epicondyles appear normal. There is a tiny olecranon spur. There is no joint effusion. Normal soft tissues. XR/XR elbow RT min 3V IMPRESSION: 1. No acute bony abnormalities. No joint effusion. 2. 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 Electronically signed by: Elias Steel MD 06/11/2025 03:55 PM EDT
[2025-06-11 16:29] LABS: Anion Gap 11 (12-20); Blood Urea Nitrogen 21 mg/dL (9-16); Calcium 9.0 mg/dL (8.4-10.2); Carbon Dioxide 26 mmol/L (22-29); Chloride 106 mmol/L (96-108); Estimated Glomerular Filt Rate 60; Potassium 4.4 mmol/L (3.3-5.1); Sodium 139 mmol/L (135-145)
== END 2025-06-11 14:24 | disposition home or self-care (01) ==
LOC: HO.HHCL 14:23
PROVIDERS: PCP Internal Medicine Geriatric Medicine; Visit Provider Internal Medicine Geriatric Medicine
DX: M25.521 Pain in right elbow (principal); N17.9 Acute kidney failure, unspecified
CPT/HCPCS: 36415; 73080; 80048

== ENCOUNTER → 2025-06-11 14:37 | Outpatient (BNV) | payer MEDICAID, SELFPAY | PROVIDERS: PCP Internal Medicine Geriatric Medicine; Visit Provider Radiology Diagnostic Radiology | DX: M19.021 Primary osteoarthritis, right elbow (principal) | CPT/HCPCS: 73080 ==

== ENCOUNTER 2025-10-15 14:46 | Outpatient (REF) | payer MEDICAID, SELFPAY ==
--- OUTSIDE RECORDS SUMMARY | 2025-10-15 14:00 | XMS_ITS | Encounter Summary ---
Author Organization [employer] Address [address] [place] [address] Care Team Providers Care Delivery Assistant Name Role Phone Name, Sukhdev ORNELAS Primary Care Provider [phone] Reason for Referral * Imaging (STAT) - Authorized Specialty Diagnoses / Procedures Referred By Contac t Referred To Contact Radiology Diagnoses Neck mass Procedures US Head Neck Soft Tissue Tiffany Girard MD [address] [place] [phone] Phone: tel: fax: [facility] [address] [place] [phone] Phone: tel: fax: Referral ID Status Reason Start Date Expiration Date V isits Requested Visits Authorized [id number] Authorized 10/15/2025 10/15/2026 1 1 Reason for Visit * Reason Comments Sore Throat Encounter Details Date Type Department Care Team ([facility] st Contact Info) Description 10/15/2025 2:00 PM EST Office Visit [facility] [address] [place] [address] [phone] Tiffany Girard MD [address] [place] [address] [phone] Neck mass (Primary Dx); Dietary counseling; Exercise counseling; Overweight Social History Tobacco Use Types Packs/Day Years Used Date Smoking Tobacco: Former Cigarettes Smokeless Tobacco: Never Tobacco Cessation:Counseling Given: Not Answered Alcohol Use Standard Drinks/Week Comments Yes 0 (1 standard drink = 0.6 oz pur e alcohol) occionally Depression Answer Date Recorded Patient Health Questionnaire-9 Score 16 01/24/2025 Patient Health Questionnaire-9 Score 16 01/24/2025 Last PHQ-9: Questionnaire Data Not on file 0 01/24/2025 Housing Stability Answer Date Recorded What is your housing situation today? I have ligia rider 06/04/[address] you li ve. Do you have problems with any of the following? None of the above 06/04/2025 Food Insecurity Answer Date Recorded Within the past 12 months, y ou worried that your food would run out before you got money to buy more: Never True 06/04/2025 Within the past 12 months,th e food you bought just didn't last and you didn't have enough money to get more: Never True Transportation Answer Date Recorded In the past 12 months, has l ack of transportation kept you from medical appts, meetings, work or from getting things needed for daily living? No 06/04/2025 Utilities Answer Date Recorded In the past 12 months, has t he electric, gas, oil or water company threatened to shut off services in your home? No 06/04/2025 Depression Answer Date Recorded Patient Health Questionnaire-2 Score 6 01/24/2025 Internet Access Answer Date Recorded Internet Access Q1 Yes 06/04/2025 Internet Access Q2 Not on file 06/04/2025 Sex and Gender Information Value Date Recorded Sex Assigned at Male 11/13/2024 1:35 PM EST Legal Sex Male 1:30 PM EST Gender Identity Male 11/13/2024 1:35 PM EST Sexual Orientation Straight 11/13/2024 1: 35 PM EST documented as of this encounter Last Filed Vital Signs Vital Sign Reading Time Taken Comments Blood Pressure 128/80 10/15/2025 2:22 PM EST Pulse 90 10/15/2025 2:22 PM EST Temperature 37.2 C (98.9 F) 10/15/2025 2:22 PM EST Respiratory Rate 18 10/15/2025 2:22 PM EST Oxygen Saturation 97% 10/15/2025 2:22 PM EST Inhaled Oxygen Concentration - - Weight 104 kg (230 lb) 10/15/2025 2:22 PM EST Height - - Body Mass Index 29.53 06/11/2025 1:37 PM EDT documented in this encounter Progress Notes * Tiffany Girard MD - 10/15/2025 2:00 PM EST SUBJECTIVE: Mauricio Lopez is a 35 y.o. male who presents for acute visit. Denies recent illness, ER visit, or hospitalization. Acute Concerns: Diagnosis of strep 10/08/25 L neck mass Labs: Patient Active Problem List Diagnosis Date Noted Severe episode of recurrent major depressive disorder, without psychotic features ([facility]) ([facility]) 01/24/2025 Depression 06/04/2021 Substance abuse ([facility]) ([facility]) 06/04/2021 Surgical History[1] Social History Social History Narrative Not on file Review of Systems Constitutional: Negative. HENT: Positive for sore throat. Negative for trouble swallowing and voice change. L sided neck swelling Respiratory: Negative. Cardiovascular: Negative. OBJECTIVE: Vitals: 10/15/25 1422 BP: 128/80 BP Location: Right arm Patient Position: Sitting BP Cuff Size: Adult Pulse: 90 Resp: 18 Temp: 98.9 ??F (37.2 ??C) TempSrc: Temporal SpO2: 97% Weight: 230 lb (104 kg) Physical Exam Vitals reviewed. Constitutional: Appearance: Normal appearance. He is normal weight. HENT: Head: Normocephalic and atraumatic. Right Ear: Tympanic membrane, ear canal and external ear normal. Left Ear: Tympanic membrane, ear canal and external ear normal. Nose: Nose normal. Mouth/Throat: Mouth: Mucous membranes are moist. Pharynx: Oropharynx is clear. Eyes: Extraocular Movements: Extraocular movements intact. Conjunctiva/sclera: Conjunctivae normal. Pupils: Pupils are equal, round, and reactive to light. Neck: Comments: L sided neck swelling, firm, not indurated, non mobile, tender to palpation, approximately 3cm x 4cm Cardiovascular: Rate and Rhythm: Normal rate and regular rhythm. Pulses: Normal pulses. Heart sounds: Normal heart sounds. Pulmonary: Effort: Pulmonary effort is normal. Breath sounds: Normal breath sounds. Musculoskeletal: Cervical back: Normal range of motion and neck supple. Tenderness present. No rigidity. Lymphadenopathy: Cervical: No cervical adenopathy. Skin: General: Skin is warm and dry. Capillary Refill: Capillary refill takes less than 2 seconds. Neurological: General: No focal deficit present. Mental Status: He is alert and oriented to person, place, and time. Psychiatric: Mood and Affect: Mood normal. Behavior: Behavior normal. ASSESSMENT/PLAN Finish antibiotics from Strep. Disposition based on lab results and what is demonstrated on US. Problem List Items Addressed This Visit None Visit Diagnoses Neck mass - Primary Relevant Orders TSH W/Reflex to FT4 CBC auto differential Basic Metabolic Panel US Head Neck Soft Tissue Dietary counseling Exercise counseling Overweight Follow Up: per PCP recall or sooner prn Allergies[2] Current Medications[3] Polish Translation: Patient is bilingual and declines translation services [1] History reviewed. No pertinent surgical history. [2] No Known Allergies [3] Current Outpatient Medications: cephalexin (Keflex) 500 MG capsule, Take 1 capsule by mouth 2 times daily., Disp: , Rfl: amoxicillin (Amoxil) 500 MG capsule, Take 1 capsule (500 mg) by mouth 2 times daily for 10 days., Disp: 20 capsule, Rfl: 0 Diclofenac Sodium 1 % gel, Apply thin layer by topical route (quantity as directed on package insert) to affected area of pain 3 times daily as needed., Disp: 50 g, Rfl: 3 ibuprofen 600 MG tablet, Take 1 tablet (600 mg) by mouth every 6 (six) hours if needed for mild pain or moderate pain., Disp: 30 tablet, Rfl: 0 documented in this encounter Plan of Treatment Scheduled Orders Name Type Priority Associated Diagnoses Orde r Schedule TSH W/Reflex to FT4 Lab Routine Neck mass Expected: 10/15/2025 (Approximate), Expires: 10/15/2026 Basic Metabolic Panel Lab Routine Neck mass Expected: 10/15/2025 (Approximate), Expires: 10/15/2026 US Head Neck Soft Tissue Imaging STAT Neck mass Expected: 10/15/2025, Expires: 10/15/2026 documented as of this encounter Procedures Procedure Name Priority Date/Time Associated Diagnosis Comments CBC WITH AUTO DIFFERENTIAL Routine 10/15/2025 2:51 PM EST Neck mass documented in this encounter Results * (ABNORMAL) CBC auto differential (10/15/2025 2:51 PM EST) White Blood Count 12.1(H) 4.8 - 10.8 X10*3/uL [facility] Red Blood Count 4.27(L) 4.60 - 5.80 X10*6/uL [facility] Hemoglobin 12.4(L) 14.0 - 18.0 g/dl [facility] Hematocrit 37.6(L) 42.0 - 52.0 % [facility] Mean Corpuscular Volume 88.1 80.0 - 98.0 fL [facility] Mean Corpuscular Hemoglobin 29.0 27.0 - 33.0 pg [facility] Mean Corpuscular HGB Conc 33.0 31.0 - 36.0 g/dl [facility] Red Cell Distribution Width 12.2 11.0 - 16.0 % [facility] Platelet Count 306 160 - 400 X10*3/uL [facility] Mean Platelet Volume 9.9 9.4 - 12.4 fL [facility] Neutrophils Percent Auto 69.9 45 - 73 % [facility] Imm Gran Pct Auto 0.2 0.0 - 0.4 % [facility] Lymphocytes Percent Auto 15.4(L) 20 - 40 % [facility] Monocytes Percent Auto 12.4(H) 2 - 11 % [facility] Eosinophils Percent Auto 1.7 0 - 4 % [facility] Basophils Percent Auto 0.4 0 - 2 % [facility] NRBC Pct Auto 0.0 0.0 - 0.2 /100WBC [facility] Neutrophils Absolute Auto 8.4(H) 2.0 - 8.3 x10*3/uL [facility] Imm Gran Abs Auto 0.03 0.00 - 0.03 X10*3/uL [facility] Lymphocytes Absolute Auto 1.9 1.2 - 4.9 X10*3/uL [facility] Monocytes Absolute Auto 1.5(H) 0.1 - 1.2 X10*3/uL [facility] Eosinophils Absolute Auto 0.2 0.0 - 0.4 X10*3/uL [facility] Basophils Absolute Auto 0.1 0.0 - 0.2 X10*3/uL [facility] NRBC Abs Auto 0.000 0.0 - 0.012 X10*3/uL [facility] Blood Venous blood specimen / Unknown 10/15/2025 2:51 PM EST 10/15/2025 4:20 PM EST us Tiffany Girard MD LAB BLOOD ORDERABLES Final Res ult Performing Organization Address City/State/[facility] Co de Phone Number [facility] [address] [place] [address] [phone] documented in this encounter Visit Diagnoses Diagnosis Neck mass- Primary Swelling, mass, or lump in head and neck Dietary counseling Dietary surveillance and counseling Exercise counseling Overweight documented in this encounter Additional Health Concerns Assessment Noted Time PHQ-9 Depression Total Score: 16 025 8:59 AM EDT documented as of this encounter Care Teams Delivery Assistant Relationship Specialty Start Date End Date Name, MD Sukhdev [address] [place] [phone] PCP - General Internal Medicine 06/11/25 documented as of this encounter
[2025-10-15 16:25] LABS: MANUAL DIFF FLAG NO
[2025-10-15 16:40] LABS: Hematocrit 37.6 % (42.0-52.0); Hemoglobin 12.4 g/dl (14.0-18.0); Imm Gran Abs Auto 0.03 X10*3/uL (0.00-0.03); Imm Gran Pct Auto 0.2 % (0.0-0.4); Lymphocytes Absolute Auto 1.9 X10*3/uL (1.2-4.9); Mean Corpuscular HGB Conc 33.0 g/dl (31.0-36.0); Mean Corpuscular Hemoglobin 29.0 pg (27.0-33.0); Mean Corpuscular Volume 88.1 fL (80.0-98.0); NRBC Abs Auto 0.000 X10*3/uL (0.0-0.012); NRBC Pct Auto 0.0 /100WBC (0.0-0.2); Platelet Count 306 X10*3/uL (160-400); Red Blood Count 4.27 X10*6/uL (4.60-5.80); White Blood Count 12.1 X10*3/uL (4.8-10.8)
--- OUTSIDE RECORDS SUMMARY | 2025-10-15 17:07 | XMS_ITS | Clinical Summary ---
Author Organization [facility] Address [address] [place] [address] Care Team Providers Care Beer Runner Name Role Phone Unavailable Primary Care Provider [...] of 3 - 19+ 3-dose series) 2008 HPV Vaccines (1 - 3-dose SCD M series) 2016 Depression Screening 10/18/2024 COVID-19 Vaccine (1 - 2024-2 6 season) 2025 Influenza Vaccine (#1) 2025 RSV Immunization Adult Patie nts (1 - 1-dose 75+ series) 2064 HIB Vaccines Aged Out No longer eligi [...]
--- OUTSIDE RECORDS SUMMARY | 2025-10-15 17:07 | XMS_ITS | Encounter Summary ---
Author Organization [employer] Address [address] [place] [address] Care Team Providers Care Stocklayer Name Role Phone Name, Sukhdev ORNELAS Primary Care Provider [phone] Encounter Details Date Type Department Care Team (Latest Contact Info) Description 10/15/2025 Travel Social History Tobacco Use Types Packs/Day Years Used Date Smoking Tobacco: Former Cigarettes Smokeless Tobacco: Never Alcohol Use Standard Drinks/Week Comments Yes 0 (1 standard drink = 0.6 oz pur e alcohol) occionally Depression Answer Date Recorded Patient Health Questionnaire-9 Score 16 01/24/2025 Patient Health Questionnaire-9 Score 16 01/24/2025 Last PHQ-9: Questionnaire Data Not on file 0 01/24/2025 Housing Stability Answer Date Recorded What is your housing situation today? I have ligia tereso 06/04/[address] you li [...] Diagnoses Not on filedocumented in this encounter Additional Health Concerns Assessment Noted Time PHQ-9 Depression Total Score: 16 025 8:59 AM EDT documented as of this encounter Care Teams Stocklayer Relationship Specialty Start Date End Date Name, MD Sukhdev [address] [place] [address] PCP - General Internal Medicine 06/11/25 documented as of this encounter
--- OUTSIDE RECORDS SUMMARY | 2025-10-15 17:07 | XMS_ITS | Clinical Summary ---
Author Organization [email or web address] Address [address] [facility] [address] [place] [address] Care Team Providers [employer] Journalist Name Role Phone Name, Sukhdev ORNELAS Primary Care Provider [phone] Allergies No known active allergies Medications * This document contains information received from the source organization and may not represent a complete record from that organization. Diclofenac Sodium 1 % gel Apply thin layer by topical route (quantity as directed on package insert) to affected area of pain 3 times daily as needed. 50 g 3 5 Active amoxicillin (Amoxil) 500 MG capsuleIndicatio ns:Strep pharyngitis Take 1 capsule (500 mg) by mouth 2 times daily for 10 days. 20 capsule 10/09/2025 9:00 AM EST 5 10/19/19 26 Active ibuprofen 600 MG tabletIndication s:Strep pharyngitis Take 1 tablet (600 mg) by mouth every 6 (six) hours if needed for mild pain or moderate pain. 30 tablet 10/09/2025 9:00 AM EST 5 10/08/20 26 Active cephalexin (Keflex) 500 MG capsule Take 1 capsule by mouth 2 times daily. 5 Active Active Problems Problem Noted Date Diagnosed Date Severe episode of recurrent major depressive disorder, without psychotic features (CMS/[facility]) 01/24/2025 Assessment & Plan (01/26/2025 9:56 AM EDT): During [facility] Consult Mauricio presenting with depressed mood, Tearful, crying spells , hopelessness, irritable mood, loss of interests/pleasure , sense of isolation/loneliness , isolating, changes in sleep difficulty falling asleep and difficulty staying asleep , psychomotor retardation, fatigue/loss of energy, worthlessness, inappropriate/excessive guilt , difficulty concentrating, indecisiveness; for a period of 18+ mo, for most or all symptoms in the context of unable to identify significant stressors. Mauricio reported hx of depression since he was youth. He was engaged in MH services in the past and lost care. Mauricio feels motivated to start making changes and identifies his children as main strength. His on- going depression, sense of loneliness and hopelessness is stopping him from living to the fullest and enjoying life. We explored main values and motivation to move forward and become a better version of himself. Mauricio was self-referred to [facility] for immediate appointments. Intake completed today. Mauricio will also be referred for medication management with [facility] prescriber, Mauricio Baker. clinician will provide additional support as needed. Depression 06/04/2021 Substance abuse ([facility]) 06/04/2021 Resolved Problems Problem Noted Date Diagnosed Date Resolved Date Current every day smoker 06/04/2021 Encounters Date Type Department Care Team Description 10/15/2025 2:00 PM EST Office Visit [facility] [address] [place] [phone] Tiffany Girard MD Neck mass (Primary Dx); Dietary counseling; Exercise counseling; Overweight 10/15/2025 Travel 10/08/2025 2:00 PM EST Office Visit [facility] [address] [phone] Rivera, Zoila, [employer] Strep pharyngitis 10/08/2025 Travel 08/20/2025 Telephone [facility] [address] [place] [phone] Moni Goldberg MA chart prep 08/13/2025 Orders Only [facility] [address] [place] [phone] Teresa Toney RN from Last 3 Months Immunizations Immunization Administration Dates Next Due Pneumococcal Polysaccharide PPSV23 06/11/2009 Tdap 10/04/2015 Social History Tobacco Use Types Packs/Day Years [...] (230 lb) 10/15/2025 2:22 PM EST Height 188 cm (6' 2 ) 06/11/2025 1:37 PM EDT Body Mass Index 29.53 06/11/2025 1:37 PM EDT Plan of Treatment Health Maintenance Due Date Last Done Comments Lipid Panel 1989 Family Planning (PISQ) 2004 HPV Vaccines (1 - Male 3-dos e series) 2004 Hepatitis A Vaccines (1 of 2 - Risk 2-dose series) 2008 Hepatitis B Vaccines (1 of 3 - 19+ 3-dose series) 2008 COVID-19 Vaccine (1 - 2024-2 6 season) 2025 Influenza Vaccine (#1) 2025 Depression Monitoring 07/26/2025 01/24/2025 , 01/24/2025 DTaP/Tdap/Td Vaccines (2 - T d or Tdap) 10/04/2025 10/04/2015 SDOH Screening 06/04/2026 06/04/2025 Alcohol/Substance Use Screening 06/11/2026 06/11/2025 Disability Screening 06/11/2026 06/11/2025 Tobacco Screening 10/15/2026 10/15/2025 Zoster Vaccines (1 of 2) 2039 RSV Patients and Patients Aged 60 years or older (1 - 1-dose 75+ series) 2064 Pneumococcal Vaccine: Pediatrics (0 to 5 Years) and At-Risk Patients (6 to 49) Years Aged Out 06/11/2009 No longer eligible b ased on patient's age to complete this topic HIV Screening Completed 02/07/2025, 12/05/2021 Hepatitis C Screening Completed 02/07/2025 HIB Vaccines Aged Out No longer eligi [...] on patient's age to complete this topic Procedures Procedure Name Priority Date/Time Associated Diagnosis Comments CBC WITH AUTO DIFFERENTIAL Routine 10/15/2025 2:51 PM EST Neck mass POCT RAPID COVID ANTIGEN Routine 10/08/2025 2:14 PM EST Strep pharyngitis POCT INFLUENZA A (ID NOW RAPID MOLECULAR) Routine 10/08/2025 2:14 PM EST Strep pharyngitis POCT INFLUENZA B (ID NOW RAPID MOLECULAR) Routine 10/08/2025 2:14 PM EST Strep pharyngitis POC SOSA ID NOW STREP A Routine 10/08/2025 2:13 PM EST Strep pharyngitis CHLAMYDIA/GONORRHEA - URINE ([facility]) Routine 08/07/2025 CHLAMYDIA/GONORRHEA THROAT SWAB ([facility]) Routine 08/07/2025 HEPATITIS C ANTIBODY ([facility]) Routine 02/07/2025 HIV ANTIBODY/ANTIGEN ([facility]) Routine 02/07/2025 from Last 3 Months or Most Recently Relevant to Health Maintenance Results * (ABNORMAL) CBC auto differential (10/15/2025 2:51 PM EST) White Blood Count 12.1(H) 4.8 - 10.8 X10*3/uL [facility] Red Blood Count 4.27(L) 4.60 - 5.80 X10*6/uL [facility] Hemoglobin 12.4(L) 14.0 - 18.0 g/dl [facility] Hematocrit 37.6(L) 42.0 - 52.0 % [facility] Mean Corpuscular Volume 88.1 80.0 - 98.0 fL [facility] Mean Corpuscular Hemoglobin 29.0 27.0 - 33.0 pg [facility] Mean Corpuscular HGB Conc 33.0 31.0 - 36.0 g/dl [facility] Red Cell Distribution Width 12.2 11.0 - 16.0 % [facility] Platelet Count 306 160 - 400 X10*3/uL [facility] Mean Platelet Volume 9.9 9.4 - 12.4 fL [facility] Neutrophils Percent Auto 69.9 45 - 73 % [facility] Imm Gran Pct Auto 0.2 0.0 - 0.4 % [facility] Lymphocytes Percent Auto 15.4(L) 20 - 40 % [facility] Monocytes Percent Auto 12.4(H) 2 - 11 % [facility] Eosinophils Percent Auto 1.7 0 - 4 % [facility] Basophils Percent Auto 0.4 0 - 2 % [facility] NRBC Pct Auto 0.0 0.0 - 0.2 /100WBC [facility] Neutrophils Absolute Auto 8.4(H) 2.0 - 8.3 x10*3/uL [facility] Imm Gran Abs Auto 0.03 0.00 - 0.03 X10*3/uL [facility] Lymphocytes Absolute Auto 1.9 1.2 - 4.9 X10*3/uL [facility] Monocytes Absolute Auto 1.5(H) 0.1 - 1.2 X10*3/uL [facility] Eosinophils Absolute Auto 0.2 0.0 - 0.4 X10*3/uL [facility] Basophils Absolute Auto 0.1 0.0 - 0.2 X10*3/uL [facility] NRBC Abs Auto 0.000 0.0 - 0.012 X10*3/uL [facility] Blood Venous blood specimen / Unknown 10/15/2025 2:51 PM EST 10/15/2025 4:20 PM EST us Tiffany Girard MD LAB BLOOD ORDERABLES Final Res ult [facility] [address] [place] [phone] * Influenza B (ID NOW Rapid Molecular) (10/08/2025 2:14 PM EST) Influenza B Negative Negative, Indeterminate [facility] Swab 10/08/2025 2:14 PM EST Result [facility] POINT OF CARE TEST ENTER/EDIT ORDERABLES Final Result Performing Organization Address [facility]/ZIP Co de Phone Number [facility] [address] [place] [phone] * Influenza A (ID NOW Rapid Molecular) (10/08/2025 2:14 PM EST) [facility] Influenza A Negative Negative, Indeterminate [facility] Swab 10/08/2025 2:14 PM EST Result [facility] POINT OF CARE TEST ENTER/EDIT ORDERABLES Final Result Performing Organization Address [facility] Co de Phone Number [facility] [address] [place] [phone] * POCT Rapid COVID Ag (10/08/2025 2:14 PM EST) [facility] Rapid COVID Ag Negative Swab 10/08/2025 2:14 PM EST Result [facility] POINT OF CARE TEST ENTER/EDIT ORDERABLES Final Result * (ABNORMAL) POCT ID NOW Rapid Strep A manually resulted (10/08/2025 2:13 PM EST) [facility] Rapid Strep A Screen Positive( A) Negative, None Detected Swab 10/08/2025 2:13 PM EST Result [facility] POINT OF CARE TEST ENTER/EDIT ORDERABLES Final Result * Chlamydia/Gonorrhea Throat Swab ([facility]) (08/07/2025) [facility] Chlamydia Throat Swab Negative Gonorrhea Throat Swab Negative Swab 08/07/2025 [facility] Provider LAB MICROBIOLOGY - GENERA L ORDERABLES Final Result * Chlamydia/Gonorrhea, Urine ([facility]) (08/07/2025) Chlamydia, Urine Negative Negative, Indeterminate, None Detected, Invalid, Specimen unsatisfactory for evaluation, Weakly Positive, 2+ Gonorrhea, Urine Negative Negative, Indeterminate, None Detected, Invalid, Specimen unsatisfactory for evaluation, Weakly Positive, 2+ Urine 08/07/2025 Result [facility] Provider LAB URINE ORDERABLES Emilia l Result * Hepatitis C Antibody ([facility]) (02/07/2025) Pathologist [facility] Hepatitis C Ab Nonreactive Blood 02/07/2025 Result [facility] MD LAB BLOOD ORDERABLES Edit ed Result - Final * HIV Ab/Ag ([facility]) (02/07/2025) Pathologist [facility] HIV Ag/Ab Nonreactive Blood 02/07/2025 Result [facility] MD LAB BLOOD ORDERABLES Edit ed Result - Final from Last 3 Months or Most Recently Relevant to Health Maintenance Insurance [facility] C3 Care Teams Magazine Journalist Relationship Specialty Start Date End Date Name, MD [address] [place] [address] PCP - General Internal Medicine 06/11/25
[2025-10-15 18:06] LABS: Anion Gap 12 (12-20); Blood Urea Nitrogen 9 mg/dL (9-16); Calcium 9.1 mg/dL (8.4-10.2); Carbon Dioxide 27 mmol/L (22-29); Chloride 103 mmol/L (96-108); Estimated Glomerular Filt Rate > 60; Potassium 3.9 mmol/L (3.3-5.1); Sodium 138 mmol/L (135-145)
== END 2025-10-15 14:47 | disposition home or self-care (01) ==
LOC: HO.HHCL 14:46
PROVIDERS: PCP General Practice; Visit Provider General Practice
DX: R22.1 Localized swelling, mass and lump, neck (principal)
CPT/HCPCS: 36415; 80048; 84443; 85025